=== PATIENT | male | born 1965 | race Hispanic/Latino ===

== ENCOUNTER → 2025-01-09 | Day surgery (SDC) | payer MEDICARE ==
[2025-01-06 17:48] LABS: BASOPHILS % 0.5 % (0.0-1.0); EOSINOPHILS % 6.4 % (0.0-6.0); LYMPHOCYTES % 25.6 % (18.0-39.1); MONOCYTES % 9.2 % (4.4-11.3); NEUTROPHILS % 58.0 % (38.7-80.0); RED CELL DISTRIBUTION WIDTH 12.0 % (11.7-14.4)
[2025-01-06 18:10] LABS: EST GLOMERULAR FILTRATION RATE 80.0 ML/MIN (>=60)
[~2025-01-09] MED LIST: ACETAMINOPHEN 1000 MG/100 ML 100 ML IV ONE; AMLODIPINE BESY10 MG PO; DEXAMETHASONE SOD PHOS INJ 4 MG/ML SDV ONE; FENTANYL CITRATE/PF 100MCG/2 ML INJ ONE; HYDROCODON-ACE1 EA10; LIDOCAINE HCL 2% LOCAL INJ 5 ML SDV VIAL INJ ONE; MIDAZOLAM HCL 2 MG/2 ML VIAL ONE; NEURONTIN100 MG PO; ONDANSETRON HCL INJ 2MG/ML 2ML 2 MG/ML VIAL ONE; PROPOFOL IV EMULSION 10 MG/ML 20 ML VIAL ONE; ROCURONIUM BROMIDE 1 ML IV ONE; SERTRALINE HCL50 MG PO; SEVOFLURANE INHAL SOLN 250 ML PEN BTL ONE
[2025-01-09] MEDS: CEFTRIAXONE 1 GM VIAL ONE (06:56)
[2025-01-09] MEDS: SODIUM CHLORIDE 0.9% 1000ML 1,000 ML ONE (06:56)
[2025-01-09 10:04] VITALS: TEMP 98.6
[2025-01-09] MEDS: PHENAZOPYRIDINE HCL 100 MG TAB ONE (10:45)
[2025-01-09 10:55] VITALS: BP 140/79; PULSE 65; RESP 16; O2SAT 96
== END | disposition home or self-care (01) ==
LOC: OR 06:28
PROVIDERS: ATTEND Urology
DX: N20.0 Calculus of kidney (principal); N32.89 Other specified disorders of bladder; N40.1 Benign prostatic hyperplasia with lower urinary tract symptoms; R35.0 Frequency of micturition; E29.1 Testicular hypofunction; I86.1 Scrotal varices; I10 Essential (primary) hypertension; E66.01 Morbid (severe) obesity due to excess calories; Z68.39 Body mass index [BMI] 39.0-39.9, adult; F32.A Depression, unspecified; M54.2 Cervicalgia; M54.9 Dorsalgia, unspecified; Z01.810 Encounter for preprocedural cardiovascular examination; Z01.812 Encounter for preprocedural laboratory examination; Z01.818 Encounter for other preprocedural examination; Z79.899 Other long term (current) drug therapy
CPT/HCPCS: 36415; 50590; 52005; 74018; 80048; 83970; 84550; 85025; 87086; 93005; C1758; J0131; J0696; J1100; J2003; J2250; J2405; J2704; J3010; J7030